=== PATIENT | male | born 1935 | race Asian ===

== ENCOUNTER 2016-12-20 10:40 | Emergency (ER) | payer MEDICARE, MEDICAID ==
[~2016-12-20] VITALS: Ht 160 cm; Wt 44.0 kg
[~2016-12-20 10:40] MED LIST: ALBU0.63 NEB; ALBU8.5H5 INH; ALBUTEROL INH; AMIO200T42; AMLO5TAB4 PO; ASPI-496 PO; ATOR10TA PO; ATOR10TA9 PO; B IN1TAB2 PO; BP MEDICATION; CEPH-368 PO; CHLO25TA PO; FAMO-79 PO; FURO-93 PO; HYDR-3342 PO; LABE200T3 PO; LABETALOL PO; LISI40TA PO; LORA-445 PO; LOSA50TA6 PO; [UNRECOGNIZED DRUG - OTHER] PO
[2016-12-20] MEDS ORDERED: SODIUM CHLORIDE FLUSH 10ML SYR IVF ONE (11:30)
[2016-12-20] MEDS ORDERED: ALBUTEROL/IPRATROPIUM 2.5MG/0.5MG, 3 ML NPPB SCH (11:30)
[2016-12-20] MEDS ORDERED: ALBUTEROL SULFATE 2.5 MG/3 ML NPPB ONE (11:35)
[2016-12-20] MEDS ORDERED: ALBUTEROL/IPRATROPIUM 2.5MG/0.5MG, 3 ML NEB ONE (11:35)
[2016-12-20] MEDS ORDERED: ALBUTEROL SULFATE 2.5MG/0.5ML ONE (11:40)
[2016-12-20] MEDS ORDERED: ALBUTEROL/IPRATROPIUM 2.5MG/0.5MG, 3 ML ONE (11:40)
[2016-12-20 11:57] LABS: BLOOD UREA NITROGEN 14 mg/dL (7-18)
[2016-12-20 12:03] LABS: IS PT STATUS REG ER OR PRE ER? YES
[2016-12-20 13:55] VITALS: BP 126/63
== END 2016-12-20 13:57 | disposition home or self-care (01) ==
LOC: ED 11:41
DX: J44.9 Chronic obstructive pulmonary disease, unspecified (principal); E87.1 Hypo-osmolality and hyponatremia; I10 Essential (primary) hypertension; J45.909 Unspecified asthma, uncomplicated
CPT/HCPCS: 36415; 71010; 80048; 82040; 83880; 84484; 85025; 94640; 99285; J7512; J7613; J7620

== ENCOUNTER 2017-02-16 14:06 | Inpatient (IN) | payer MEDICARE, MEDICAID ==
[~2017-02-16] VITALS: Ht 160 cm; Wt 43.2 kg
[2017-02-16] MEDS ORDERED: HYDROcodone/APAP 5/325 TABLET ONE (14:54)
[2017-02-16] MEDS ORDERED: ONDANSETRON ODT 4 MG ONE (14:55)
[2017-02-16] MEDS ORDERED: ONDANSETRON ODT 4 MG PO ONE (15:00)
[2017-02-16] MEDS ORDERED: HYDROcodone/APAP 5/325 TABLET PO ONE (15:00)
[2017-02-16 15:02] LABS: HEMATOCRIT 38.9 % (39.2-51.8); HEMOGLOBIN 13.2 g/dL (13.7-18.0); WHITE BLOOD COUNT 11.1 x10^3/uL (3.4-10)
[2017-02-16 15:10] LABS: BLOOD UREA NITROGEN 13 mg/dL (7-18)
[2017-02-16] MEDS ORDERED: METHOCARBAMOL 750 MG TABLET ONE (16:09)
[2017-02-16] MEDS ORDERED: SODIUM CHLORIDE 0.9% 1,000 ML IV ONE (16:22)
[2017-02-16] MEDS ORDERED: SODIUM CHLORIDE FLUSH 10ML SYR IVF PRN (16:30)
[2017-02-16] MEDS ORDERED: METHOCARBAMOL 750 MG TABLET PO ONE (16:30)
[2017-02-16] MEDS ORDERED: ENOXAPARIN 40 MG/0.4 ML SQ SCH (17:00)
[2017-02-16] MEDS ORDERED: ENALAPRILAT 1.25 MG/ML, 2ML IVPush PRN (17:00)
[2017-02-16] MEDS ORDERED: ONDANSETRON ODT 4 MG PO PRN (17:00)
[2017-02-16] MEDS ORDERED: ACETAMINOPHEN 325 MG TABLET PO PRN (17:00)
[2017-02-16 19:35] VITALS: BP 154/79
[2017-02-16] MEDS ORDERED: ALBUTEROL/IPRATROPIUM 2.5MG/0.5MG, 3 ML NPPB PRN (20:00)
[2017-02-16 21:14] VITALS: BP 135/87
[2017-02-16] MEDS: ONDANSETRON 2MG/ML, 2ML IVPush PRN (22:43)
[2017-02-16] MEDS ORDERED: HYDROcodone/APAP 5/325 TABLET PO PRN (23:00)
[2017-02-17 00:30] VITALS: BP 124/71
[2017-02-17 01:53] LABS: POTASSIUM,URINE RANDOM 36 mmol/L
[2017-02-17] MEDS: SODIUM CHLORIDE 0.9% 1,000 ML IV SCH ×2 (03:00→13:36)
[2017-02-17 04:55] LABS: HEMATOCRIT 31.5 % (39.2-51.8); HEMOGLOBIN 10.6 g/dL (13.7-18.0); WHITE BLOOD COUNT 6.6 x10^3/uL (3.4-10)
[2017-02-17 05:03] LABS: BLOOD UREA NITROGEN 14 mg/dL (7-18)
[2017-02-17 07:40] VITALS: BP 128/68
[2017-02-17] MEDS: ONDANSETRON 2MG/ML, 2ML IVPush PRN (08:34)
[2017-02-17] MEDS: LOSARTAN 50MG TABLET PO SCH ×2 (10:11→19:30)
[2017-02-17 13:32] VITALS: BP 135/73
[2017-02-17] MEDS: SODIUM CHLORIDE 1 GM TABLET PO SCH ×2 (17:12→19:31)
[2017-02-17 20:07] VITALS: BP 164/84
[2017-02-17] MEDS ORDERED: ATORVASTATIN 10 MG TABLET PO SCH (21:00)
[2017-02-17] MEDS ORDERED: ENOXAPARIN 40 MG/0.4 ML SQ SCH (21:00)
[2017-02-18 02:18] VITALS: BP 150/81
[2017-02-18] MEDS: SODIUM CHLORIDE 0.9% 1,000 ML IV SCH (02:58)
[2017-02-18 03:15] LABS: BLOOD UREA NITROGEN 9 mg/dL (7-18)
[2017-02-18 07:24] VITALS: BP 140/88
[2017-02-18] MEDS: LOSARTAN 50MG TABLET PO SCH (09:04)
[2017-02-18] MEDS ORDERED: ATOR10TA9 PO (13:36)
[2017-02-18] MEDS ORDERED: LOSA50TA2 PO (13:36)
[2017-02-18] MEDS ORDERED: ONDA4TAB13 PO (13:36)
[2017-02-18 13:47] VITALS: BP 166/91
== END 2017-02-18 15:54 | disposition home or self-care (01) | DRG 641 ==
LOC: ED 16:28 → EDIP 16:30 → 4NOR 19:23 → DCLOUNGE 02-18 15:40
PROVIDERS: ADMIT Internal Medicine; ATTEND Internal Medicine
DX: E87.1 Hypo-osmolality and hyponatremia (principal); E44.0 Moderate protein-calorie malnutrition; D72.829 Elevated white blood cell count, unspecified; I10 Essential (primary) hypertension; E78.5 Hyperlipidemia, unspecified; Z66 Do not resuscitate; I73.9 Peripheral vascular disease, unspecified; J44.9 Chronic obstructive pulmonary disease, unspecified; T50.2X5A Adverse effect of carbonic-anhydrase inhibitors, benzothiadiazides and other diuretics, initial encounter; M47.812 Spondylosis without myelopathy or radiculopathy, cervical region; Y92.89 Other specified places as the place of occurrence of the external cause; Z79.899 Other long term (current) drug therapy; Z82.49 Family history of ischemic heart disease and other diseases of the circulatory system; Z86.73 Personal history of transient ischemic attack (TIA), and cerebral infarction without residual deficits; Z98.61 Coronary angioplasty status
CPT/HCPCS: 36415; 71010; 72125; 80048; 82040; 82436; 83930; 83935; 84133; 84295; 84300; 85025; 94640; J1650; J2405; J7620; Q0162; J7030

== ENCOUNTER 2017-04-19 13:57 | Inpatient (IN) | payer MEDICARE, MEDICAID ==
[~2017-04-19] VITALS: Ht 154.9 cm; Wt 50.1 kg
[~2017-04-19 13:57] MED LIST changes: +LOSA50TA2 PO; +ONDA4TAB13 PO
[2017-04-19] MEDS ORDERED: SODIUM CHLORIDE 0.9% 1,000 ML IV ONE (14:33)
[2017-04-19 14:52] LABS: HEMATOCRIT 43.3 % (39.2-51.8); HEMOGLOBIN 14.6 g/dL (13.7-18.0); WHITE BLOOD COUNT 7.5 x10^3/uL (3.4-10)
[2017-04-19] MEDS ORDERED: SODIUM CHLORIDE FLUSH 10ML SYR IVF ONE (15:00)
[2017-04-19 15:02] LABS: ASPARTATE AMINO TRANSFERASE 21 U/L (15-37); BLOOD UREA NITROGEN 21 mg/dL (7-18)
[2017-04-19] MEDS ORDERED: SODIUM CHLORIDE FLUSH 10ML SYR IVF PRN (16:30)
[2017-04-19 17:57] VITALS: BP 129/86
[2017-04-19 17:58] VITALS: BP 129/86
[2017-04-19] MEDS ORDERED: GOLYTELY 4,000ML ORAL.SOL PO ONE ×2 (18:30→20:30)
[2017-04-19] MEDS ORDERED: hydrALAzine 20 MG/ML, 1ML IVPush PRN (18:30)
[2017-04-19] MEDS ORDERED: ACETAMINOPHEN 325 MG TABLET PO PRN (18:30)
[2017-04-19] MEDS ORDERED: FUROSEMIDE 40 MG/4 ML IV ONE (18:30)
[2017-04-19] MEDS ORDERED: HYDROcodone/APAP 5/325 TABLET PO PRN (18:30)
[2017-04-19] MEDS ORDERED: TEMAZEPAM 15 MG CAPSULE PO PRN (18:30)
[2017-04-19] MEDS ORDERED: SODIUM CHLORIDE 0.9% 1,000 ML IV SCH (18:30)
[2017-04-19] MEDS ORDERED: POTASSIUM CHLORIDE 40 MEQ in SODIUM CHLORIDE 0.9% 500 ML IV ONE (18:30)
[2017-04-19] MEDS: SODIUM CHLORIDE 0.9% 1,000 ML IV SCH (18:30)
[2017-04-19] MEDS ORDERED: ONDANSETRON 2MG/ML, 2ML IVPush PRN (18:30)
[2017-04-19] MEDS ORDERED: morphine SULFATE 10 MG/ML, 1ML IVPush PRN (18:30)
[2017-04-19 18:46] VITALS: BP 160/98
[2017-04-19] MEDS: ENOXAPARIN 40 MG/0.4 ML SQ SCH (20:11)
[2017-04-19] MEDS: LOSARTAN 50MG TABLET PO SCH (21:34)
[2017-04-19] MEDS: ATORVASTATIN 10 MG TABLET PO SCH (21:34)
[2017-04-20] MEDS ORDERED: POTASSIUM CHLORIDE 40 MEQ in SODIUM CHLORIDE 0.9% 500 ML IV ONE (00:30)
[2017-04-20] MEDS: SODIUM CHLORIDE 0.9% 1,000 ML IV SCH ×2 (01:11→09:07)
[2017-04-20 02:12] VITALS: BP 135/88
[2017-04-20 05:54] LABS: ASPARTATE AMINO TRANSFERASE 18 U/L (15-37); BLOOD UREA NITROGEN 21 mg/dL (7-18)
[2017-04-20 07:13] VITALS: BP 135/93
[2017-04-20] MEDS: POLYETHYLENE GLYCOL 17 GM PACKET PO SCH (09:06)
[2017-04-20] MEDS: LOSARTAN 50MG TABLET PO SCH ×2 (09:06→20:58)
[2017-04-20] MEDS ORDERED: MAGNESIUM SULFATE PMX 4GM/100M 100 ML IV ONE (11:00)
[2017-04-20] MEDS ORDERED: GOLYTELY 4,000ML ORAL.SOL PO ONE (11:00)
[2017-04-20 13:47] VITALS: BP 152/84
[2017-04-20] MEDS ORDERED: POTASSIUM PHOSPHATE 44 MEQ in SODIUM CHLORIDE 0.9% 500 ML IV ONE (15:00)
[2017-04-20 20:28] VITALS: BP 163/96
[2017-04-20] MEDS: ATORVASTATIN 10 MG TABLET PO SCH (20:58)
[2017-04-20] MEDS: ENOXAPARIN 40 MG/0.4 ML SQ SCH (20:58)
[2017-04-21 01:32] VITALS: BP 178/94
[2017-04-21 03:51] VITALS: BP 128/74
[2017-04-21 04:47] LABS: BLOOD UREA NITROGEN 10 mg/dL (7-18)
[2017-04-21] MEDS ORDERED: POTASSIUM PHOSPHATE 44 MEQ in SODIUM CHLORIDE 0.9% 500 ML IV ONE (06:25)
[2017-04-21] MEDS ORDERED: FUROSEMIDE 40 MG/4 ML IV ONE (06:30)
[2017-04-21] MEDS ORDERED: SODIUM CHLORIDE 0.9% 1,000 ML IV SCH (06:30)
[2017-04-21] MEDS ORDERED: POTASSIUM CHLORIDE 20 MEQ TAB.ER.PRT PO ONE ×2 (06:30→09:00)
[2017-04-21] MEDS ORDERED: FUROSEMIDE 20 MG/2 ML ONE (06:42)
[2017-04-21 08:14] VITALS: BP 144/86
[2017-04-21] MEDS: LOSARTAN 50MG TABLET PO SCH ×2 (08:34→20:58)
[2017-04-21] MEDS: POLYETHYLENE GLYCOL 17 GM PACKET PO SCH (08:35)
[2017-04-21 13:20] VITALS: BP 169/91
[2017-04-21 15:51] LABS: BLOOD UREA NITROGEN 11 mg/dL (7-18)
[2017-04-21] MEDS ORDERED: MAGNESIUM SULFATE PMX 2GM/50ML 50 ML IV ONE (17:30)
[2017-04-21 19:14] VITALS: BP 166/88
[2017-04-21] MEDS: ATORVASTATIN 10 MG TABLET PO SCH (20:58)
[2017-04-21] MEDS: ENOXAPARIN 40 MG/0.4 ML SQ SCH (20:58)
[2017-04-22 01:30] VITALS: BP 150/87
[2017-04-22 05:26] LABS: BLOOD UREA NITROGEN 11 mg/dL (7-18)
[2017-04-22] MEDS ORDERED: POTASSIUM PHOSPHATE 44 MEQ in SODIUM CHLORIDE 0.9% 500 ML IV ONE (06:30)
[2017-04-22] MEDS ORDERED: FUROSEMIDE 40 MG/4 ML IV ONE (06:30)
[2017-04-22] MEDS ORDERED: SODIUM CHLORIDE 0.9% 1,000 ML IV ONE (06:30)
[2017-04-22 08:00] VITALS: BP 164/91
[2017-04-22] MEDS: POLYETHYLENE GLYCOL 17 GM PACKET PO SCH (08:03)
[2017-04-22] MEDS: LOSARTAN 50MG TABLET PO SCH ×2 (08:03→21:54)
[2017-04-22 14:13] VITALS: BP 158/87
[2017-04-22 16:51] LABS: BLOOD UREA NITROGEN 14 mg/dL (7-18)
[2017-04-22] MEDS ORDERED: MAGNESIUM SULFATE PMX 4GM/100M 100 ML IV ONE (17:30)
[2017-04-22] MEDS: METOPROLOL TARTRATE 50 MG TABLET PO SCH (18:19)
[2017-04-22 19:21] VITALS: BP 161/88
[2017-04-22] MEDS: ATORVASTATIN 10 MG TABLET PO SCH (21:53)
[2017-04-22] MEDS: ENOXAPARIN 40 MG/0.4 ML SQ SCH (21:53)
[2017-04-22] MEDS: SODIUM CHLORIDE 1 GM TABLET PO SCH (21:54)
[2017-04-22] MEDS: SODIUM CHLORIDE 0.9% 1,000 ML IV SCH (23:00)
[2017-04-23 00:35] VITALS: BP 167/85
[2017-04-23 05:22] LABS: BLOOD UREA NITROGEN 9 mg/dL (7-18)
[2017-04-23] MEDS: SODIUM CHLORIDE 1 GM TABLET PO SCH ×4 (06:48→21:17)
[2017-04-23] MEDS: METOPROLOL TARTRATE 50 MG TABLET PO SCH ×2 (06:48→18:33)
[2017-04-23 06:56] VITALS: BP 178/109
[2017-04-23] MEDS ORDERED: SODIUM CHLORIDE 0.9% IV ONE (07:00)
[2017-04-23] MEDS ORDERED: SODIUM PHOSPHATE IV ONE (07:00)
[2017-04-23] MEDS ORDERED: FUROSEMIDE 40 MG/4 ML IV ONE ×2 (07:00→20:30)
[2017-04-23] MEDS: POLYETHYLENE GLYCOL 17 GM PACKET PO SCH (08:14)
[2017-04-23] MEDS: SODIUM CHLORIDE 0.9% 1,000 ML IV SCH ×2 (08:14→21:21)
[2017-04-23] MEDS: LOSARTAN 50MG TABLET PO SCH ×2 (08:14→21:17)
[2017-04-23 12:41] VITALS: BP 165/94
[2017-04-23 18:59] VITALS: BP 163/89
[2017-04-23] MEDS ORDERED: ALBUTEROL SULFATE 2.5 MG/3 ML NPPB PRN (19:00)
[2017-04-23 19:43] LABS: BLOOD UREA NITROGEN 14 mg/dL (7-18)
[2017-04-23] MEDS ORDERED: MAGNESIUM SULFATE PMX 4GM/100M 100 ML IV ONE (20:00)
[2017-04-23] MEDS: ENOXAPARIN 40 MG/0.4 ML SQ SCH (21:16)
[2017-04-23] MEDS: ATORVASTATIN 10 MG TABLET PO SCH (21:17)
[2017-04-24 00:12] VITALS: BP 127/77
[2017-04-24] MEDS: SODIUM CHLORIDE 1 GM TABLET PO SCH ×4 (06:03→21:28)
[2017-04-24] MEDS: METOPROLOL TARTRATE 50 MG TABLET PO SCH ×2 (06:03→17:07)
[2017-04-24 06:16] LABS: BLOOD UREA NITROGEN 13 mg/dL (7-18)
[2017-04-24] MEDS ORDERED: POTASSIUM CHLORIDE 20 MEQ TAB.ER.PRT PO ONE ×2 (06:30→09:00)
[2017-04-24] MEDS ORDERED: FUROSEMIDE 40 MG/4 ML IV ONE (06:30)
[2017-04-24] MEDS: SODIUM CHLORIDE 0.9% 1,000 ML IV SCH ×2 (06:39→17:08)
[2017-04-24 08:40] VITALS: BP 106/89
[2017-04-24] MEDS: POLYETHYLENE GLYCOL 17 GM PACKET PO SCH (09:13)
[2017-04-24] MEDS: LOSARTAN 50MG TABLET PO SCH ×2 (09:14→21:29)
[2017-04-24] MEDS: FLUTICASONE/VILANTEROL 100-25MCG/INH INH SCH (10:18)
[2017-04-24 12:56] VITALS: BP 169/91
[2017-04-24 16:36] VITALS: BP 140/99
[2017-04-24 19:46] VITALS: BP 168/89
[2017-04-24] MEDS: ENOXAPARIN 40 MG/0.4 ML SQ SCH (21:28)
[2017-04-24] MEDS: ATORVASTATIN 10 MG TABLET PO SCH (23:46)
[2017-04-25 02:30] VITALS: BP 133/72
[2017-04-25] MEDS: SODIUM CHLORIDE 0.9% 1,000 ML IV SCH (03:26)
[2017-04-25] MEDS: METOPROLOL TARTRATE 50 MG TABLET PO SCH (05:50)
[2017-04-25] MEDS: SODIUM CHLORIDE 1 GM TABLET PO SCH (05:50)
[2017-04-25 06:44] VITALS: BP 135/76
[2017-04-25 06:45] LABS: BLOOD UREA NITROGEN 12 mg/dL (7-18)
[2017-04-25] MEDS: POLYETHYLENE GLYCOL 17 GM PACKET PO SCH (09:00)
[2017-04-25] MEDS ORDERED: MAGNESIUM SULFATE PMX 4GM/100M 100 ML IV ONE (09:30)
[2017-04-25] MEDS ORDERED: SODIUM PHOSPHATE 4 MEQ/ML IV ONE (09:30)
[2017-04-25] MEDS: LOSARTAN 50MG TABLET PO SCH (09:37)
[2017-04-25] MEDS: FLUTICASONE/VILANTEROL 100-25MCG/INH INH SCH (09:37)
[2017-04-25] MEDS ORDERED: FUROSEMIDE 40 MG/4 ML IV ONE (10:00)
[2017-04-25] MEDS ORDERED: POTASSIUM CHLORIDE 20 MEQ TAB.ER.PRT PO ONE (10:00)
[2017-04-25] MEDS ORDERED: DEXTROSE 5% IV ONE (10:00)
[2017-04-25] MEDS ORDERED: SODIUM PHOSPHATE IV ONE (10:00)
== END 2017-04-25 11:27 | disposition left against medical advice (07) | DRG 640 ==
LOC: ED 15:05 → EDIP 16:24 → 4WST 17:32
PROVIDERS: ADMIT Internal Medicine; ATTEND Internal Medicine
DX: E87.1 Hypo-osmolality and hyponatremia (principal); N17.0 Acute kidney failure with tubular necrosis; E27.49 Other adrenocortical insufficiency; J44.9 Chronic obstructive pulmonary disease, unspecified; E83.39 Other disorders of phosphorus metabolism; E78.00 Pure hypercholesterolemia, unspecified; E83.42 Hypomagnesemia; E87.6 Hypokalemia; I10 Essential (primary) hypertension; K59.00 Constipation, unspecified; Z86.73 Personal history of transient ischemic attack (TIA), and cerebral infarction without residual deficits; Z98.61 Coronary angioplasty status; T50.2X5A Adverse effect of carbonic-anhydrase inhibitors, benzothiadiazides and other diuretics, initial encounter; Y92.89 Other specified places as the place of occurrence of the external cause
CPT/HCPCS: 36415; 74176; 80048; 80053; 81003; 83605; 83690; 83735; 84100; 84443; 85025; 85610; 85730; 93005; 96360; 96361; J1650; J1940; J3480; J7613; J0360; J3475; J7030; J7040

== ENCOUNTER 2017-09-29 19:46 | Emergency (ER) | payer MEDICARE, MEDICAID ==
[~2017-09-29] VITALS: Ht 160 cm; Wt 37.7 kg
[2017-09-29] MEDS ORDERED: SODIUM CHLORIDE FLUSH 10ML SYR IVF ONE (20:30)
[2017-09-29] MEDS ORDERED: LABETALOL 5MG/ML, 20ML IVPush ONE (20:30)
[2017-09-29] MEDS ORDERED: MORPHINE SULFATE 4 MG/ML, 1ML IVPush PRN (20:30)
[2017-09-29] MEDS ORDERED: MORPHINE SULFATE 4 MG/ML, 1ML ONE (20:31)
[2017-09-29] MEDS ORDERED: LABETALOL 5MG/ML, 20ML ONE (20:33)
[2017-09-29 20:48] LABS: BASOPHILS # (AUTO) 0.03 x10^3/uL (0-0.1); BASOPHILS % (AUTO) 0 % (0-1); EOSINOPHILS # (AUTO) 0.39 x10^3/uL (0-0.4); EOSINOPHILS % (AUTO) 6 % (1-7); LYMPHOCYTES # (AUTO) 0.72 x10^3/uL (1-3.4); LYMPHOCYTES % (AUTO) 11 % (22-44); MD NO; MEAN CORPUSCULAR HEMOGLOBIN 31.2 pg (27.5-34.5); MEAN CORPUSCULAR HGB CONC 33.4 g/dL (33.2-36.2); MEAN CORPUSCULAR VOLUME 93.3 fL (81-97); MEAN PLATELET VOLUME 6.6 fL (7.4-10.4); MONOCYTES % (AUTO) 12 % (2-9); NEUTROPHILS # (AUTO) 4.66 x10^3/uL (1.8-6.8); NEUTROPHILS % (AUTO) 71 % (42-75); PLATELET COUNT 300 x10^3/uL (130-400); RED BLOOD COUNT 4.56 x10^6/uL (4.38-5.82); RED CELL DISTRIBUTION WIDTH 15.1 % (9.4-14.8)
[2017-09-29 20:55] LABS: INTERNATIONAL NORMALIZED RATIO 0.92 (0.93-1.1); PROTHROMBIN TIME 9.6 Seconds (9.6-11.5)
[2017-09-29 20:57] LABS: ALANINE AMINOTRANSFERASE 31 U/L (12-78); ALBUMIN 3.4 g/dL (3.4-5.0); ANION GAP 5 mmol/L (5-15); CALCIUM 8.6 mg/dL (8.5-10.1); CHLORIDE 103 mmol/L (98-107); CREATININE 1.11 mg/dL (0.7-1.3)
[2017-09-29 21:01] LABS: ALKALINE PHOSPHATASE 80 U/L (45-117); BILIRUBIN,TOTAL 0.4 mg/dL (0.2-1.0); TROPONIN I < 0.015 ng/mL (0.000-0.045)
[2017-09-29 21:06] LABS: MICROSCOPIC NOT IND
[2017-09-29 21:17] LABS: CULTURE INDICATED? NO
[2017-09-29 22:47] VITALS: BP 176/99
[2017-09-29] MEDS ORDERED: OMNIPAQUE 350 MG/ML, 100ML BOTTLE ONE (23:47)
== END 2017-09-29 22:49 | disposition home or self-care (01) ==
LOC: ED 21:26
DX: M48.54XA Collapsed vertebra, not elsewhere classified, thoracic region, initial encounter for fracture (principal); I10 Essential (primary) hypertension; J44.9 Chronic obstructive pulmonary disease, unspecified; Z86.73 Personal history of transient ischemic attack (TIA), and cerebral infarction without residual deficits
CPT/HCPCS: 36415; 71045; 71275; 74175; 80053; 81003; 84484; 85025; 85610; 85730; 93005; 96374; 99285; Q9967

== ENCOUNTER 2017-10-23 06:55 | Inpatient (IN) | payer MEDICARE, MEDICAID ==
[~2017-10-23] VITALS: Ht 160 cm; Wt 40.4 kg
[2017-10-23] MEDS ORDERED: OXYMETAZOLINE NASAL SPRAY 0.05%, 15ML ONE (07:19)
[2017-10-23] MEDS ORDERED: NITROGLYCERIN SINGLE TAB 0.4 MG SL ONE (07:20)
[2017-10-23] MEDS ORDERED: NITROGLYCERIN OINT 2%, 1GM TP ONE ×2 (07:20→07:30)
[2017-10-23] MEDS ORDERED: ASPIRIN 81 MG TABLET CHEW ONE (07:21)
[2017-10-23] MEDS ORDERED: OXYMETAZOLINE NASAL SPRAY 0.05%, 15ML NAS ONE (07:30)
[2017-10-23] MEDS ORDERED: ASPIRIN 81 MG TABLET CHEW PO ONE (07:30)
[2017-10-23] MEDS: PLEASE ENTER ALLERGIES MC SCH ×2 (07:37→07:38)
[2017-10-23 07:41] LABS: BASOPHILS # (AUTO) 0.01 x10^3/uL (0-0.1); BASOPHILS % (AUTO) 0 % (0-1); EOSINOPHILS # (AUTO) 0.08 x10^3/uL (0-0.4); EOSINOPHILS % (AUTO) 2 % (1-7); LYMPHOCYTES # (AUTO) 0.86 x10^3/uL (1-3.4); LYMPHOCYTES % (AUTO) 17 % (22-44); MD NO; MEAN CORPUSCULAR HEMOGLOBIN 30.6 pg (27.5-34.5); MEAN CORPUSCULAR HGB CONC 32.8 g/dL (33.2-36.2); MEAN CORPUSCULAR VOLUME 93.2 fL (81-97); MEAN PLATELET VOLUME 6.5 fL (7.4-10.4); MONOCYTES # (AUTO) 0.74 x10^3/uL (0.2-0.8); MONOCYTES % (AUTO) 15 % (2-9); NEUTROPHILS # (AUTO) 3.37 x10^3/uL (1.8-6.8); NEUTROPHILS % (AUTO) 67 % (42-75); PLATELET COUNT 276 x10^3/uL (130-400); RED BLOOD COUNT 3.86 x10^6/uL (4.38-5.82); RED CELL DISTRIBUTION WIDTH 14.9 % (9.4-14.8)
[2017-10-23 07:51] LABS: INTERNATIONAL NORMALIZED RATIO 0.98 (0.93-1.1); PROTHROMBIN TIME 10.1 Seconds (9.6-11.5)
[2017-10-23 07:52] LABS: ALANINE AMINOTRANSFERASE 34 U/L (12-78); ALBUMIN 3.3 g/dL (3.4-5.0); ANION GAP 7 mmol/L (5-15); CALCIUM 8.6 mg/dL (8.5-10.1); CHLORIDE 104 mmol/L (98-107); CREATININE 1.03 mg/dL (0.7-1.3)
[2017-10-23 07:57] LABS: ALKALINE PHOSPHATASE 91 U/L (45-117); TOTAL PROTEIN 6.3 g/dL (6.4-8.2); TROPONIN I < 0.015 ng/mL (0.000-0.045)
[2017-10-23 07:58] LABS: BILIRUBIN,TOTAL 0.4 mg/dL (0.2-1.0)
[2017-10-23] MEDS ORDERED: TRANEXAMIC ACID 100 MG/ML, 10ML ONE (08:22)
[2017-10-23] MEDS ORDERED: TRANEXAMIC ACID 100 MG/ML, 10ML TP ONE (08:30)
[2017-10-23] MEDS ORDERED: MULT1TAB13 PO (09:45)
[2017-10-23] MEDS ORDERED: MORPHINE SULFATE 4 MG/ML, 1ML IVPush PRN (10:00)
[2017-10-23] MEDS ORDERED: POLYETHYLENE GLYCOL 17 GM PACKET PO PRN (10:00)
[2017-10-23] MEDS ORDERED: LABETALOL 5MG/ML, 20ML IVPush PRN (10:00)
[2017-10-23] MEDS ORDERED: ENALAPRILAT 1.25 MG/ML, 2ML IV PRN (10:00)
[2017-10-23] MEDS ORDERED: ONDANSETRON 2MG/ML, 2ML IVPush PRN (10:00)
[2017-10-23] MEDS ORDERED: HYDROcodone/APAP 5/325 TABLET PO PRN (10:00)
[2017-10-23] MEDS ORDERED: DOCUSATE 100 MG CAPSULE PO PRN (10:00)
[2017-10-23] MEDS ORDERED: hydrALAzine 20 MG/ML, 1ML IV PRN (10:00)
[2017-10-23] MEDS ORDERED: TEMPLATE NON-FORMULARY MED. (Albuterol Sulfate** (Albuterol Sulfate Hfa**) 2 PUFF(S)) INH PRN (10:00)
[2017-10-23 10:25] VITALS: BP 174/98
[2017-10-23] MEDS ORDERED: DEXTROSE 5% IV PRN (10:30)
[2017-10-23] MEDS ORDERED: [UNRECOGNIZED DRUG - REMARK] MC SCH (10:30)
[2017-10-23] MEDS ORDERED: ENALAPRILAT IV PRN (10:30)
[2017-10-23] MEDS ORDERED: NS + 20MEQ KCL 1,000 ML IV SCH (11:00)
[2017-10-23] MEDS ORDERED: NITROGLYCERIN SINGLE TAB 0.4 MG SL PRN (11:00)
[2017-10-23] MEDS: LOSARTAN 50MG TABLET PO SCH ×2 (11:56→20:50)
[2017-10-23 13:48] VITALS: BP 134/79
[2017-10-23 14:34] LABS: TROPONIN I 0.064 ng/mL (0.000-0.045)
[2017-10-23 20:32] LABS: TROPONIN I 0.136 ng/mL (0.000-0.045)
[2017-10-23 20:48] VITALS: BP 138/78
[2017-10-23] MEDS: ATORVASTATIN 10 MG TABLET PO SCH (20:50)
[2017-10-24 02:00] VITALS: BP 113/66
[2017-10-24 05:26] LABS: BASOPHILS # (AUTO) 0.03 x10^3/uL (0-0.1); BASOPHILS % (AUTO) 0 % (0-1); EOSINOPHILS # (AUTO) 0.03 x10^3/uL (0-0.4); EOSINOPHILS % (AUTO) 1 % (1-7); LYMPHOCYTES # (AUTO) 0.76 x10^3/uL (1-3.4); LYMPHOCYTES % (AUTO) 10 % (22-44); MD NO; MEAN CORPUSCULAR HEMOGLOBIN 31.4 pg (27.5-34.5); MEAN CORPUSCULAR HGB CONC 33.4 g/dL (33.2-36.2); MEAN PLATELET VOLUME 6.7 fL (7.4-10.4); MONOCYTES # (AUTO) 0.74 x10^3/uL (0.2-0.8); MONOCYTES % (AUTO) 10 % (2-9); NEUTROPHILS # (AUTO) 6.02 x10^3/uL (1.8-6.8); NEUTROPHILS % (AUTO) 79 % (42-75); PLATELET COUNT 224 x10^3/uL (130-400); RED BLOOD COUNT 3.08 x10^6/uL (4.38-5.82); RED CELL DISTRIBUTION WIDTH 14.8 % (9.4-14.8)
[2017-10-24 05:30] LABS: ANION GAP 10 mmol/L (5-15); CALCIUM 7.7 mg/dL (8.5-10.1); CHLORIDE 106 mmol/L (98-107); CREATININE 1.01 mg/dL (0.7-1.3)
[2017-10-24 05:32] LABS: TROPONIN I 0.072 ng/mL (0.000-0.045)
[2017-10-24 05:33] LABS: CHOL/HDL RATIO 3.1; CHOLESTEROL, TOTAL 160 mg/dL (140-239); HDL CHOL % 33 % (26-37); HDL CHOLESTEROL (DIRECT) 52 mg/dL (40-60); LDL CHOLESTEROL,CALCULATED 73 mg/dL (54-169); LDL/HDL RATIO 1.4 (0.5-3.0); TRIGLYCERIDES 173 mg/dL (50-200); VLDL CHOLESTEROL 35 mg/dL (0-25)
[2017-10-24 06:44] VITALS: BP 134/74
[2017-10-24] MEDS: SENNA/DOCUSATE TABLET PO SCH (08:47)
[2017-10-24] MEDS: LOSARTAN 50MG TABLET PO SCH ×2 (08:48→20:51)
[2017-10-24] MEDS: ACETAMINOPHEN 325 MG TABLET PO PRN (08:48)
[2017-10-24] MEDS ORDERED: REGADENOSON 0.4 MG/5 ML SYRINGE ONE (10:31)
[2017-10-24] MEDS ORDERED: AMINOPHYLLINE 25 MG/ML, 10ML ONE (11:21)
[2017-10-24 11:53] VITALS: BP 155/84
[2017-10-24] MEDS ORDERED: MAGNESIUM SULFATE PMX 2GM/50ML 50 ML IV ONE (12:30)
[2017-10-24 13:05] VITALS: BP 121/76
[2017-10-24 19:27] VITALS: BP 143/70
[2017-10-24 20:49] VITALS: BP 125/85
[2017-10-24] MEDS: ATORVASTATIN 10 MG TABLET PO SCH (20:51)
[2017-10-25 02:07] VITALS: BP 129/78
[2017-10-25] MEDS: ACETAMINOPHEN 325 MG TABLET PO PRN (07:18)
[2017-10-25 08:16] VITALS: BP 147/84
[2017-10-25] MEDS: SENNA/DOCUSATE TABLET PO SCH (08:26)
[2017-10-25] MEDS: LOSARTAN 50MG TABLET PO SCH (08:27)
[2017-10-25] MEDS ORDERED: PHENYLEPHRINE NASAL 0.5%, 15ML SPRAY NAS STA (08:58)
[2017-10-25] MEDS ORDERED: LIDOCAINE 4% TOPICAL SOLUTION 50 ML TP STA (09:30)
[2017-10-25] MEDS ORDERED: SILVER NITRATE STICK TP ONE (10:00)
[2017-10-25] MEDS ORDERED: BACITRACIN ZINC OINT 500U/GM, 0.9 GM TP SCH (10:00)
[2017-10-25] MEDS ORDERED: METO25TA35 PO (10:22)
== END 2017-10-25 13:00 | disposition home or self-care (01) | DRG 982 ==
LOC: EDBD 06:55 → ED 09:20 → MERGE 09:20 → SUATTDRO 09:30 → EDIP 09:42 → 5SO 10:11 → DCLOUNGE 10-25 12:28
PROVIDERS: ADMIT Family Medicine; ATTEND Family Medicine
PROC: 2Y41X5Z Packing of Nasal Region using Packing Material (ICD-10-PCS; 2017-10-23)
PROC: 0W3Q7ZZ Control Bleeding in Respiratory Tract, Via Natural or Artificial Opening (ICD-10-PCS; principal; 2017-10-25)
DX: R04.0 Epistaxis (principal); I24.8 Other forms of acute ischemic heart disease; E44.1 Mild protein-calorie malnutrition; E78.00 Pure hypercholesterolemia, unspecified; I10 Essential (primary) hypertension; E78.5 Hyperlipidemia, unspecified; Z86.73 Personal history of transient ischemic attack (TIA), and cerebral infarction without residual deficits; J45.909 Unspecified asthma, uncomplicated; G89.29 Other chronic pain; M40.209 Unspecified kyphosis, site unspecified; M54.9 Dorsalgia, unspecified; R07.89 Other chest pain; Z79.82 Long term (current) use of aspirin
CPT/HCPCS: 30901; 36415; 71045; 78452; 80048; 80053; 80061; 83735; 84484; 85025; 85610; 93005; 93017; 99285; J2785; J3480; A9502; C9898; J0280; J3475

== ENCOUNTER → 2018-01-30 | Outpatient (CLI) | payer MEDICARE, MEDICAID ==
[~2018-01-30] MED LIST changes: +METO25TA35 PO; +MULT1TAB13 PO
== END | disposition home or self-care (01) ==
LOC: CFH 11:56
PROVIDERS: ATTEND Physician Assistant Medical
DX: I08.3 Combined rheumatic disorders of mitral, aortic and tricuspid valves (principal); I10 Essential (primary) hypertension; E78.5 Hyperlipidemia, unspecified
CPT/HCPCS: 93306

== ENCOUNTER 2019-12-09 14:27 | Observation (INO) | payer MEDICARE, MEDICAID ==
[~2019-12-09] VITALS: Ht 160 cm; Wt 43.1 kg
[~2019-12-09 14:27] MED LIST changes: -LABE200T3 PO; +LABE200T6 PO; +LOSA50TA14 PO; -LOSA50TA6 PO
--- NOTE | 2019-12-09 14:37 | NUR ---
Julia welch in [facility] - 12/09/19 at 1449 by [email or web address] CODE NEURO PAGED @ 1220 PT ARRIVED @ 1431 NEUROLOGY PAGED @ 1432 CALLED RETURNED @ 1436
--- NOTE | 2019-12-09 14:49 | NUR ---
CODE NEURO PAGED @ 1420 PT ARRIVED @ 1431 NEUROLOGY PAGED @ 1432 CALLED RETURNED @ [id number]
[2019-12-09 15:05] LABS: BASOPHILS # (AUTO) 0.02 x10^3/uL (0-0.1); BASOPHILS % (AUTO) 1 % (0-1); EOSINOPHILS # (AUTO) 0.25 x10^3/uL (0-0.4); EOSINOPHILS % (AUTO) 6 % (1-7); LYMPHOCYTES # (AUTO) 0.95 x10^3/uL (1-3.4); LYMPHOCYTES % (AUTO) 22 % (22-44); MD NO; MEAN CORPUSCULAR HEMOGLOBIN 31.7 pg (27.5-34.5); MEAN CORPUSCULAR HGB CONC 32.6 g/dL (33.2-36.2); MEAN CORPUSCULAR VOLUME 97.3 fL (81-97); MONOCYTES # (AUTO) 0.51 x10^3/uL (0.2-0.8); MONOCYTES % (AUTO) 12 % (2-9); NEUTROPHILS # (AUTO) 2.61 x10^3/uL (1.8-6.8); NEUTROPHILS % (AUTO) 60 % (42-75); PLATELET COUNT 276 x10^3/uL (130-400); RED BLOOD COUNT 4.05 x10^6/uL (4.38-5.82); RED CELL DISTRIBUTION WIDTH 14.2 % (9.4-14.8)
--- NOTE | 2019-12-09 15:15 | NUR ---
THIS PT WAS BIB EMS AFTER HIS CALLED BECAUSE HE BECAME SUDDENLY APHASIC WHEN THEY WERE SITTING DOWN TO LUNCH, PER THIS WAS AT 1350. UPON ARRIVAL PT WAS APHASIC, AND OPENING AND CLOSING JAW CONTINUOUSLY, WHEN ASKED TO STOP THIS HE WAS ABLE, BUT THEN RETURNED AFTER MD WAS DONE ASSESSING. MD WAS AT BEDSIDE UPON PT ARRIVAL FOR ASSESSMENT. PT TRANSPORTED TO CT IMMEDIATELY AFTER MD ASSESSMENT COMPLETE. IN CT, PT BEGAN TO SPEAK, DYSPHASIA NOTED IT TOOK PT SOME TIME TO STATE HIS SENTENCES. PT STATED "I LIKE TO TALK, I CAN'T." PT UNDERSTOOD WHEN TOLD ABOUT CT, AND WAS ABLE TO FOLLOW DIRECTIONS. WHEN CT COMPLETE, PT STATED "THANK YOU." PT TRANSPORTED TO ROOM. AT BEDSIDE. DR. SORENSEN AT BEDSIDE. DR. SORENSEN PERFORMED NIH SCALE, PT SPEECH RETURNED, STATED TO BASELINE, THOUGH PT REMAINS SLOW TO RESPOND INTERMITTENTLY. PT A&OX4. DR. SORENSEN STATED NO TPA INDICATED AT THIS TIME FOR RESOLVED S/SX.
[2019-12-09 15:16] LABS: INTERNATIONAL NORMALIZED RATIO 0.93 (0.93-1.1); PROTHROMBIN TIME 9.8 Seconds (9.6-11.5)
[2019-12-09] MEDS ORDERED: ASPIRIN 81 MG TABLET CHEW PO ONE (15:30)
[2019-12-09] MEDS ORDERED: ASPIRIN 81 MG TABLET CHEW ONE (15:33)
--- NOTE | 2019-12-09 15:41 | NUR ---
REPORT RECEIVED FROM ISIDRO MLIIAN. PT HAD SUDDEN ONSET OF APHASIA AND LT SIDED FACIAL DROOP AT APPROX 1355 TODAY. CURRENTLY, PER REPORT, PT HAS RESOLVE OF SYMPTOMS. PT TO MRI. WILL ASSESS WHEN PT RETURNS.
[2019-12-09] MEDS ORDERED: AMLO10TA8 PO (15:47)
[2019-12-09] MEDS ORDERED: UMEC1DIS INH (15:47)
[2019-12-09] MEDS ORDERED: IRBE300T8 PO (15:47)
[2019-12-09] MEDS ORDERED: METO25TA35 PO (15:47)
--- NOTE | 2019-12-09 15:47 | NUR ---
SB[facility] RPT TO MAICOL BELCHER PT TO MRI WITH TECH TRANSPORT AND THEN WILL GO TO ROOM 19
--- NOTE | 2019-12-09 16:33 | NUR ---
PT BACK FROM MRI. PT REPOSITIONED IN BED FOR COMFORT. ON MONITORS, VSS. PER , PT IS BACK TO HIS BASELINE MENTATION. PT CURRENTLY A&OX4, PROTECTING OWN AIRWAY WELL, NO ACUTE NEURO DEFICIT NOTED. WILL FOLLOW ORDERS. CONT TO MONITOR.
--- NOTE | 2019-12-09 16:45 | NUR ---
HOSPITAL BED REQUESTED. PT LIKELY TO BE ER HOLD.
[2019-12-09 16:55] LABS: CHOL/HDL RATIO 2.1; LDL/HDL RATIO 0.8 (0.5-3.0)
--- NOTE | 2019-12-09 17:17 | NUR ---
REPORT GIVEN TO LYNETTE MILIAN. PT OK TO TRANSFER TO FLOOR.
--- NOTE | 2019-12-09 17:58 | NUR ---
PT TRANSFERED TO FLOOR. PT HAS ALL OWN BELONGINGS UPON TRANSFER.
[2019-12-09] MEDS: SODIUM CHLORIDE 0.9% 1,000 ML IV SCH (18:22)
[2019-12-09 19:36] VITALS: BP 173/93
[2019-12-09] MEDS: ATORVASTATIN 80 MG TABLET PO SCH (21:07)
[2019-12-09 21:17] VITALS: BP 164/81
[2019-12-09 23:16] VITALS: BP 148/71
[2019-12-10] VITALS (8 sets, daily range): BP systolic 125–173; BP diastolic 56–98
[2019-12-10] MEDS: SODIUM CHLORIDE 0.9% 1,000 ML IV SCH (03:21)
[2019-12-10 06:41] LABS: CHOL/HDL RATIO 2.1; LDL/HDL RATIO 0.9 (0.5-3.0)
[2019-12-10] MEDS: ASPIRIN 81 MG TABLET CHEW PO/NG SCH (08:54)
[2019-12-10] MEDS: METOPROLOL TARTRATE 25 MG TAB PO SCH (08:54)
[2019-12-10] MEDS: AMLODIPINE 5 MG TABLET PO SCH (15:00)
[2019-12-10] MEDS: ATORVASTATIN 80 MG TABLET PO SCH (21:04)
[2019-12-11 02:11] VITALS: BP 146/87
[2019-12-11 02:30] VITALS: BP 143/81
[2019-12-11 05:36] VITALS: BP 149/85
[2019-12-11 07:22] VITALS: BP 147/76
[2019-12-11] MEDS: AMLODIPINE 5 MG TABLET PO SCH (07:47)
[2019-12-11] MEDS: METOPROLOL TARTRATE 25 MG TAB PO SCH (07:47)
[2019-12-11] MEDS: ASPIRIN 81 MG TABLET CHEW PO/NG SCH (07:48)
[2019-12-11] MEDS ORDERED: ATOR10TA9 PO (08:48)
[2019-12-11] MEDS ORDERED: ASPI-515 PO/NG (08:48)
== END 2019-12-11 11:35 | disposition home or self-care (01) ==
LOC: ED 14:45 → EDIP 15:28 → INTOOBSV 15:28 → 4EST 18:03
PROVIDERS: ADMIT Internal Medicine; ATTEND Hospitalist
DX: I63.81 Other cerebral infarction due to occlusion or stenosis of small artery (principal); R47.1 Dysarthria and anarthria; G46.0 Middle cerebral artery syndrome; E78.5 Hyperlipidemia, unspecified; J44.9 Chronic obstructive pulmonary disease, unspecified; I25.10 Atherosclerotic heart disease of native coronary artery without angina pectoris; E78.00 Pure hypercholesterolemia, unspecified; I11.9 Hypertensive heart disease without heart failure; L30.9 Dermatitis, unspecified; Z98.61 Coronary angioplasty status
CPT/HCPCS: 36415; 70450; 70551; 80047; 80061; 85025; 85610; 85730; 92523; 92610; 93005; 93306; 93880; 97162; 97166; 99285; G0378; J7030

== ENCOUNTER 2020-04-11 10:01 | Day surgery (SDC) | payer MEDICARE, MEDICAID ==
[~2020-04-11 10:01] MED LIST changes: +AMLO10TA8 PO; +ASPI-515 PO/NG; +IRBE300T8 PO; +UMEC1DIS INH
[2020-04-11] MEDS ORDERED: LIDOCAINE 1%, 20ML ONE (11:27)
== END 2020-04-11 12:00 | disposition home or self-care (01) ==
LOC: CACL 10:01
PROVIDERS: ATTEND Internal Medicine Cardiovascular Disease
DX: I63.9 Cerebral infarction, unspecified (principal); I35.1 Nonrheumatic aortic (valve) insufficiency; I10 Essential (primary) hypertension; E78.2 Mixed hyperlipidemia; R63.6 Underweight; Z68.1 Body mass index [BMI] 19.9 or less, adult; Z79.82 Long term (current) use of aspirin; Z79.899 Other long term (current) drug therapy
CPT/HCPCS: 33285; C1764

== ENCOUNTER → 2020-06-22 | Outpatient (CLI) | payer MEDICARE, MEDICAID ==
[~2020-06-22] MED LIST changes: +AMLO-211 PO; -AMLO10TA8 PO
== END | disposition home or self-care (01) ==
LOC: RAD 13:00
PROVIDERS: ATTEND Physician Assistant Surgical
DX: S32.010A Wedge compression fracture of first lumbar vertebra, initial encounter for closed fracture (principal); S32.020A Wedge compression fracture of second lumbar vertebra, initial encounter for closed fracture; S32.030A Wedge compression fracture of third lumbar vertebra, initial encounter for closed fracture; S32.050A Wedge compression fracture of fifth lumbar vertebra, initial encounter for closed fracture; M41.86 Other forms of scoliosis, lumbar region; X58.XXXA Exposure to other specified factors, initial encounter; Y93.89 Activity, other specified; Y92.89 Other specified places as the place of occurrence of the external cause; Y99.8 Other external cause status
CPT/HCPCS: 72110

== ENCOUNTER → 2020-08-18 | Outpatient (CLI) | payer MEDICARE, MEDICAID ==
[~2020-08-18] MED LIST changes: -ASPI-515 PO/NG; +ASPI-963 PO/NG; -LISI40TA PO; +LISI40TA9 PO
== END | disposition home or self-care (01) ==
LOC: RAD 11:33
PROVIDERS: ATTEND Physician Assistant Surgical
DX: M48.56XA Collapsed vertebra, not elsewhere classified, lumbar region, initial encounter for fracture (principal); M85.88 Other specified disorders of bone density and structure, other site
CPT/HCPCS: 72110

== ENCOUNTER → 2020-09-14 | Outpatient (CLI) | payer MEDICARE, MEDICAID | END | disposition home or self-care (01) | LOC: CFH 14:52 | PROVIDERS: ATTEND Physician Assistant Surgical | DX: M48.56XA Collapsed vertebra, not elsewhere classified, lumbar region, initial encounter for fracture (principal); M48.061 Spinal stenosis, lumbar region without neurogenic claudication | CPT/HCPCS: 72148 ==